=== PATIENT | female | born 1930 | race Caucasian/White ===

== ENCOUNTER 2017-06-09 15:21 | Outpatient (RCR) | payer MEDICARE, MEDICAID ==
[2017-04-09 14:57] LABS: CALCIUM 9.5 MG/DL (8.5-10.1); CREATININE SERUM 0.98 MG/DL (0.60-1.30); POTASSIUM 3.6 MMOL/L (3.6-5.0); URIC ACID 2.9 MG/DL (2.6-7.2)
[2017-04-10 14:16] LABS: CALCIUM 9.2 MG/DL (8.5-10.1); CREATININE SERUM 0.99 MG/DL (0.60-1.30); POTASSIUM 3.9 MMOL/L (3.6-5.0)
== END 2017-06-29 | disposition home or self-care (01) ==
LOC: ONC 15:21
PROVIDERS: ATTEND Radiology Radiation Oncology
DX: Z51.0 Encounter for antineoplastic radiation therapy (principal); C90.00 Multiple myeloma not having achieved remission
CPT/HCPCS: 77290; 77300; 77307; 77334; 77336; 77417; 80048; 84550; 99213; 99214